=== PATIENT | female | born 2000 | race Two or more races ===

== ENCOUNTER → 2018-06-09 | Outpatient (CLI) | payer OTHER ==
[~2018-06-09] MED LIST: CONRAY-43 43% 50ML VIAL (Q9960) As Ordered ONE; LIDOCAINE 1% MDV 20ML VIAL As Ordered ONE; TRIAMCINOLONE ACETONIDE SUSP 40 MG/ML VIAL (J3301) As Ordered ONE
--- NOTE | 2018-06-10 15:01 | REP ---
Left hip injection The procedure was performed under the direct supervision of Dr. Montelongo. The benefits and risks including but not limited to pain infection and bleeding and anaphylaxis were explained to the patient and informed consent was obtained. The left femoral neck was localized using fluoroscopic guidance. The skin was prepped and draped in a sterile fashion. 1% lidocaine was used as a local anesthetic. Using fluoroscopic guidance a 22-gauge spinal needle was inserted and advanced to the femoral neck. 0.5 ml of Conray 43 was injected to verify placement. 10 ml of a solution containing 9 ml of 1% Xylocaine and 1 ml of Kenalog 40 mg was injected. The needle was then removed. The patient tolerated the procedure well and there were no immediate complications. Less than 6 seconds of fluoro time was utilized for this procedure. Reviewed by JOSE Vang 06/09/2018 04:39 P Electronically Signed by Lan Montelongo MD 06/10/2018 02:50 P
== END ==
LOC: M RADPRO 10:17
PROVIDERS: ATTEND Physician Assistant
DX: M25.552 Pain in left hip (principal)
CPT/HCPCS: 20610; 77002; J3301; Q9960